=== PATIENT | male | born 1950 | race African-American/Black ===

== ENCOUNTER 2016-10-23 20:16 | Emergency (ER) | payer MEDICARE, OTHER | END 2016-10-23 22:00 | disposition home or self-care (01) | LOC: CED 20:16 | DX: Z48.01 Encounter for change or removal of surgical wound dressing (principal); N18.9 Chronic kidney disease, unspecified; Z99.2 Dependence on renal dialysis | CPT/HCPCS: 99282 ==

== ENCOUNTER 2016-11-04 16:55 | Inpatient (IN) | payer MEDICARE, OTHER ==
--- NOTE | ~2016-11-04 | CO ---
Unit #: [id number] #: [id number] Patient: NOEMI PELLETIER [id number] [facility] [address] [facility]. [place], [place] [address] [id number] MR#: [id number] NAME: NOEMI PELLETIER [facility]OM: [facility] Age: 66 Sex: M Admission Date: 11/04/2016 : 1950 Attending Physician: Eugene Brown M.D. Consultation Date: 11/04/2016 CONSULTATION REPORT Thank you very much for this consultation. HISTORY OF PRESENT ILLNESS The patient is a 66-year-old male with history of end-stage renal disease, on Wednesday, Wednesday, and Wednesday hemodialysis, who recently had a partial left foot amputation for nonhealing wounds due to peripheral vascular disease. He was at dialysis today in his normal state of health when he went unresponsive. He was noted to have lost his pulse and was immediately put on a backboard with compressions. An AED was placed, which indicated the need to shock. The patient was shocked twice and received compressions until pulse was regained. By that time, EMS had arrived. He also received rescue breaths as he seemed to have some agonal breathing in the dialysis unit. He was then transferred via EMS to the emergency room here at [facility], where he was intubated for respiratory protection. He did have a significant amount of secretions noted in the ER. He is currently on the vent, sedated on Diprivan in the ER. His blood pressure is stable. Heart rate is stable, and he is saturating well on the vent. His dialysis needles had been removed, and there is family present at bedside. Review of systems is of course unobtainable due to his current condition. PAST MEDICAL HISTORY Significant for end-stage renal disease, on Wednesday, Wednesday, and Wednesday hemodialysis; anemia of chronic kidney disease; peripheral vascular disease; hypertension; diabetes type 2. MEDICATIONS Reviewed as per his med rec. FAMILY HISTORY Noncontributory. SOCIAL HISTORY Unobtainable. REVIEW OF SYSTEMS Unobtainable. PHYSICAL EXAMINATION VITAL SIGNS: His blood pressure is 121/58, pulse of 81, respirations 18, current temperature 98.0. GENERAL: He is a well-developed male, sedated on the vent. HEAD: Normocephalic and atraumatic. Unit #: [id number] #: [id number] Patient: NOEMI PELLETIER ENT: He has an ET tube in place. NECK: Supple with no JVD. LUNGS: Coarse bilaterally with no wheezes, rhonchi, or crackles. HEART: Regular rate and rhythm. No murmurs, gallops, or rubs. ABDOMEN: Soft, with positive bowel sounds. EXTREMITIES: He has no edema. NEURO: The patient is sedated. DIAGNOSTIC STUDIES LABORATORY RESULTS: ABG showed a pH of 7.286, pCO2 of 42, pO2 of 284. Sodium 135, potassium 2.5, chloride 97, bicarb 20, BUN 12, creatinine 4.6, glucose 222, calcium 8.4, albumin 3.4, INR 1.1, troponin less than 0.05. White count 40.4, hemoglobin 10.1, platelets 432. IMPRESSION 1. End-stage renal disease. The patient normally on a Wednesday, Wednesday, Wednesday hemodialysis. He did receive his dialysis today before his arrest. 2. Status post cardiac arrest. The patient was resuscitated in the dialysis unit with the use of AED and chest compressions. He is currently vitally stable in the ER. His troponin is negative. Further workup is pending. 3. Hypokalemia. This is likely due to his having just received dialysis. We will recheck now and treat as indicated. 4. Pulmonary edema. The patient is currently stable on the vent. We will not do further dialysis tonight due to his recent arrest and potential instability. We will plan on dialysis tomorrow if stable. 5. Diabetes type 2. 6. Acute respiratory failure secondary to pulmonary edema, stable on the vent. PLAN We will write orders for dialysis for the morning. Continue ventilatory support. Pulmonary is to see. Vital signs are currently stable. We will adjust medications as needed and have discussed condition with the patient's family. More than 35 minutes of critical care time was spent in consultation regarding this critically ill patient. Thank you very much for this consultation. Dictated by... Frank Garcia M.D. YUE/josiah TD: 11/05/2016 02:54 JOB #: [id number] CONSULTATION REPORT Page 1 of 1 X Frank Garcia MD CONSULTATION REPORT
--- NOTE | ~2016-11-04 | DS ---
Unit #: [id number] #: [id number] Patient: NOEMI PELLETIER [id number] [id number] [facility]. [place], [place] [address] [id number] MR#: [id number] NAME: NOEMI PELLETIER ROOM: 329 Age: 66 Sex: M Admission Date: 11/04/2016 : 1950 Discharge Date: Attending Physician: Jeff Otero M.D. Primary Care Physician: No Primary Care Physician DISCHARGE SUMMARY DISPOSITION The patient will be transferred to [facility] on either 11/09/2016 or 11/10/2016 depending on bed availability. CONSULTANTS Dr. Saeed from pulmonary services. Dr. Lantigua from renal services. Drs. Lozada and Magnus from cardiology services. DIAGNOSTIC DATA LABORATORY: On discharge, sodium 135, potassium 4.1, chloride 96, BUN 27, creatinine 9.7, calcium 8.3, magnesium 2.0. CBC shows white blood cell count 15.5, hemoglobin 8.4, hematocrit 26.2, and platelets 364. Blood cultures one of two sets growing staph species coag negative, probable contaminate. Troponin on 11/08/2016 was 1.76. BNP 900 on 11/06/2016. BNP 1000 on admission. Procalcitonin level 28.02 on 11/05/2016. IMAGING: CTA of the chest on 11/04/2016 showed no PE, no evidence of aortic aneurysm or dissection. Pulmonary parenchymal findings most in keeping with zgnxkoel-nk-ayvbbm pulmonary edema. Multifocal bilateral pneumonia possible. 4-5 mm noncalcified pulmonary nodule right upper lobe. The patient may need 6-[address] followup. Most recent chest x-ray was done on 11/07/2016, which shows stable heart size and interval extubation. No new dense opacity or pneumothorax. HOSPITAL COURSE Mr. Noemi Pelletier is a 66-year-old male who was admitted by Dr. Saeed and later on transferred care to our services. The patient was at hemodialysis when he suffered pulseless electrical activity and went into cardiopulmonary arrest. The patient was resuscitated and admitted at [facility] at [facility] by Dr. Saeed and was on the ventilator. The patient was started on broad spectrum IV antibiotics. Dr. Lozada and Dr. Agudelo from the cardiology service were consulted. The patient did suffer a non-ST elevation myocardial infarction. Cardiac catheterization was done on 11/09/2016 and the patient does have severe systolic three vessel disease. It has been decided by cardiology to transfer the patient to [facility] for possible coronary artery bypass grafting or further cardiac intervention. I have discussed with the patient and the patient is aware. The patient does not have any primary care provider. The patient will be transferred to [facility] under Dr. Otero's care. The patient does have pneumonia and is being treated by Dr. Saeed with Unit #: [id number] #: [id number] Patient: NOEMI PELLETIER. Dr. Saeed will continue to follow the patient at [facility]. The patient does have endstage renal disease and is on hemodialysis. The patient is scheduled to have hemodialysis done today. Discussed with Dr. Keyes and he will continue to follow the patient at [facility]. DISCHARGE MEDICATIONS 1. IV Astinon 0.5 g q.12 h. 2. IV vancomycin 1 g daily. Pharmacy to dose. 3. Nephrocaps 1 capsule daily. 4. Nitroglycerin 0.4 mg sublingual p.r.n. chest pain. 5. Levothyroxine 25 mcg daily. 6. Aspirin 81 mg daily. 7. Percocet 5/325 mg 1 tablet q.4 h. p.r.n. pain. 8. Protonix 40 mg p.o. daily. 9. Insulin sliding scale low-dose protocol. 10. Lipitor 80 mg p.o. at nighttime. 11. Coreg 6.25 mg b.i.d. 12. Heparin 5000 units subcutaneous t.i.d. 13. Tylenol 650 mg q.6 h. p.r.n. 14. Nebulizer treatment. 15. Mini-Neb treatment with albuterol and Atrovent q.4 h. p.r.n. FINAL DIAGNOSES 1. Cardiopulmonary arrest, status post resuscitation. 2. Non-ST elevation myocardial infarction. 3. Status post cardiac catheterization showing three-vessel disease. 4. History of endstage renal disease on hemodialysis. 5. Peripheral vascular disease two weeks ago, with amputation of left great toe. The patient will need ongoing wound care. 6. Hypertension. 7. Hyperlipidemia. 8. Diabetes mellitus type 2. 9. Hypothyroidism. 10. Morbid obesity. 11. Nonsmoker. PHYSICAL EXAMINATION VITALS: At discharge, blood pressure 128/67, respiratory rate 16, pulse 92, temperature 99, oxygen saturation 98%. HEENT: Head is normocephalic. CHEST: Fair air entry. Decreased at the bases. HEART: S1 and S2 positive. Regular rhythm. ABDOMEN: Obese. EXTREMITIES: Left foot dressing is present. The patient had amputation done two weeks ago at [facility]. The patient will need ongoing wound care. DISCHARGE INSTRUCTIONS 1. The patient is being transferred to [facility] for further cardiac intervention. 2. Dr. Otero to take over the patient's care. 3. Medications as per medication reconciliation. 4. Dr. Lantigua to continue hemodialysis at [facility]. 5. Dr. Saeed to follow the patient at [facility] for pneumonia. 6. The patient is needing to continue wound care of the left foot. The Unit #: [id number] #: [id number] Patient: NOEMI PELLETIER patient had amputation done at [facility] about two weeks ago. 7. CBC and BMP to be done in one week. 8. The plan of care has been discussed with the patient. Dictated by... Madalyn Kennedy TD: 11/09/2016 13:52 JOB #: [id number] DISCHARGE SUMMARY Page 1 of 1 X Alicia Fry MD X DISCHARGE SUMMARY
--- NOTE | ~2016-11-04 | CR72 ---
[facility] A Service of [facility] & [facility] RADIOLOGY TEXT RESULTS PATIENT: NOEMI PELLETIER LOCATION: [address] : [birth year] UNIT #: [id number] AGE: [address]: CHENTE BROWN SEX: M ORDER DR: [id number] [facility] [address] [facility]. [place], [place] [address] [id number] I MR#: [id number] Acc #: [id number] NAME: NOEMI PELLETIER : 1950 SEX: M STUDY DATE/TIME: 11/05/2016 3:47 UNIT: [facility] ROOM: [facility] STUDY DESCRIPTION: CR Chest Single View Portable Attending Physician: Chente Brown Ordering Physician: Jo Hidalgo M.D. Primary Care Physician: Primary Care Physician No MEDICAL IMAGING REPORT This report is preliminary unless electronic signature is present EXAM Single view chest INDICATION Respiratory failure. FINDINGS Single portable AP view of the chest compared to 11/04/2016. Endotracheal tube has been retracted, now approximately 5.5 cm from the bassam. Right IJ central line remains in place. There is increased density in the right lower lobe. No new pulmonary opacities. No pneumothorax. IMPRESSION 1. Interval retraction of the endotracheal tube, now approximately 5.5 cm from the bassam. 2. Otherwise, no significant change. Dictated by... Juan Roberts M.D. THIS IS AN ELECTRONICALLY VERIFIED REPORT Juan Roberts M.D. at 11/05/2016 5:43 AM DIPAK/natalie TD: 11/05/2016 04:51 JOB #: [id number] MEDICAL IMAGING REPORT Page 1 of 1 COPY
--- NOTE | ~2016-11-04 | A ---
[facility] Nutrition Therapy DATE: 11/05/16 Patient: NOEMI PELLETIER Physician: [facility] Address: [address] Room/Bed: [address], Zip: [place] [address] Admit Date: 11/04/16 Date of : [birth year] Height: 6 0 Weight: 198 90 NUTRITIONAL ASSESSMENT: REASON: NPO/ ventilator in ICU 66 yo male admitted for resuscitated arrest PMH: ESRD on HD, PVD, DM, hypothyroid, left great toe amputation Anthropometrics: Ht: 6'0" Wt: 90 kg BMI: 26.9 Labs: Na+ 133 Cl- 97 Gluc 165 Creat 5.6 Ca++ 8.2 Alb 3.4 AST 186 ALT 111 GFR 11.2 BNP 1014 Meds: Propofol @ 22.8 mL/hr, novolog, protonix, D5%, levophed, NaCl I/O & Bowel function: 304/0, last BM unknown Skin Integrity: Scar left hip/ RLQ Edema: BLE- generalized Estimated Nutrition Needs: 6403-7284 kcals (25-30 kcals/kg) 108-126 grams protein (1.2-1.4 grams/kg) Assessment: Chart reviewed, events noted. 66 yo male admitted for resuscitated arrest after coding at the dialysis center. Pt is intubated and sedated in the ICU on pressors. Propofol is providing an additional 602 kcals from lipids at this time. Per RN report, was confused upon admission, not following commands. Pt is currently receiving HD, and no family is in the room to provide nutritional history. Please see nutritional recommendations below. Dx: Inadequate protein-energy intake RT clinical condition, ventilator dependence AEB NPO status, no plans for nutrition support at this time. Intervention: 1. Enteral nutrition once hemodynamically stable Monitoring, Evaluation and Goals: 1. Enteral nutrition; initiate once the pt is stable, provide >80% goal volume x 24 hrs 2. Improve labs; Na+, Gluc, AST, ALT, GFR 3. Fluid status; monitor edema [facility] Nutrition Therapy DATE: 11/05/16 Patient: NOEMI PELLETIER Physician: [facility] Address: [address] Room/Bed: [address], Zip: [place] [address] Admit Date: 11/04/16 Date of : [birth year] Height: 6 0 Weight: 198 90 Recommendations: 1. If the pt's MAP is <60 mmHg, do not feed. -If the pt's MAP is >60 mmHg, consider using a fiber-free enteral formula and monitor closely for symptoms of intolerance. If fiber-free formula is desired, start Osmolite 1.5 @ 15 mL/hr. Increase by 10 mL q 12 hrs as tolerated to goal of 65 mL/hr + 30 mL Prostat once daily to provide: 2440 kcals/ 113 grams protein/ 1186 mL free H20 2. Once the pt is hemodynamically stable, recommend initiating enteral nutrition with Nepro @ 15 mL/hr. Increase by 10 mL q 8 hrs as tolerated to indicated goal below based on propofol administration: WHILE THE PT IS RECEIVING PROPOFOL: -Increase Nepro to 40 mL/hr + 30 mL Prostat BID to provide: 2530 kcals/ 108 grams protein/ 701 mL free H20 WHEN PROPOFOL IS DISCONTINUED: -Discontinue Prostat -Increase Nepro to 55 mL/hr to provide: 2376 kcals/ 107 grams protein/ 964 mL free H20 3. Free H20 flushes per MD orders Pt is at moderate-severe nutritional risk. RD will follow hospital course. Respectfully, SUSAN NARAYANAN RD, LD Food and Nutritional Services [facility] cc: client file
--- NOTE | ~2016-11-04 | CR72 ---
[facility] A Service [facility] RADIOLOGY TEXT RESULTS PATIENT: NOEMI PELLETIER LOCATION: [address] : [birth year] UNIT #: [id number] AGE: [address]: CHENTE HUBBARD SEX: M ORDER DR: [id number] [facility] [address] [place], [place] [address] [id number] MR#: [id number] Acc #: [id number] NAME: NOEMI PELLETIER : 1950 SEX: M STUDY DATE/TIME: 11/04/2016 22:40 UNIT: [facility] ROOM: STUDY DESCRIPTION: CR Chest Single View Portable Attending Physician: Todd Ellison Ordering Physician: Ed Doc Madalyn Lopez Primary Care Physician: Primary Care Physician No MEDICAL IMAGING REPORT This report is preliminary unless electronic signature is present EXAM Single view chest INDICATION Central line placement. FINDINGS Single portable AP view of the chest compared to 11/04/2016. There is a new right IJ central line with the tip over the cavoatrial junction. No pneumothorax. Endotracheal tube is unchanged in position. There is mild interstitial edema in both lungs, however this has slightly improved. No significant pleural effusion. IMPRESSION 1. New right IJ central line terminating over the cavoatrial junction. No pneumothorax. 2. Improving pulmonary vascular congestion. Dictated by... Juan Roberts M.D. THIS IS AN ELECTRONICALLY VERIFIED REPORT Juan Roberts M.D. at 11/05/2016 12:19 AM DIPAK/natalie TD: 11/04/2016 23:17 JOB #: [id number] MEDICAL IMAGING REPORT [facility] A Service [facility] RADIOLOGY TEXT RESULTS PATIENT: NOEMI PELLETIER LOCATION: [address] : [birth year] UNIT #: [id number] AGE: [address]: CHENTE HUBBARD SEX: M ORDER DR: Page 1 of 1 COPY
--- NOTE | ~2016-11-04 | CR72 ---
[facility] A Service of [facility] & [facility] RADIOLOGY TEXT RESULTS PATIENT: NOEMI PELLETIER LOCATION: [facility] CICCU3-19 : [birth year] UNIT #: [id number] AGE: [address]: CHENTE HUBBARD SEX: M ORDER DR: [id number] [facility] [address] [place], [place] [address] [id number] E MR#: [id number] Acc #: [id number] NAME: NOEMI PELLETIER : 1950 SEX: M STUDY DATE/TIME: 11/04/2016 17:23 UNIT: [facility] ROOM: STUDY DESCRIPTION: CR Chest Single View Portable Attending Physician: Calvin Ellison M.D. Referring Physician: Rachdi Bray M.D. Ordering Physician: Ed Aldo Lopez M.D. Primary Care Physician: No Primary Care Physician MEDICAL IMAGING REPORT This report is preliminary unless electronic signature is present EXAM Portable chest, 11/04/2016. INDICATION Patient found unconscious today and intubated. CHF. FINDINGS AP portable chest compared with 07/05/15. ET tube in good position in the lower trachea. Heart size within normal limits. Diffuse bilateral infiltrates probably reflect pulmonary edema rather than pneumonia. There is trace amount of right pleural fluid. No pneumothorax. Dictated by... Noemi Vergara Jr., M.D. THIS IS AN ELECTRONICALLY VERIFIED REPORT Noemi Vergara Jr., M.D. at 11/05/2016 2:07 PM MARKUS/courtney TD: 11/04/2016 21:05 JOB #: [id number] MEDICAL IMAGING REPORT Page 1 of 1 COPY
--- NOTE | ~2016-11-04 | CT16 ---
[facility] A Service of [facility] & [facility] RADIOLOGY TEXT RESULTS PATIENT: NOEMI PELLETIER LOCATION: [facility] CICCU3-19 : [birth year] UNIT #: [id number] AGE: [address]: CHENTE HUBBARD SEX: M ORDER DR: [id number] [facility] [address] [place], [place] [address] [id number] E MR#: [id number] Acc #: [id number] NAME: NOEMI PELLETIER : 1950 SEX: M STUDY DATE/TIME: 11/04/2016 21:34 UNIT: [facility] ROOM: STUDY DESCRIPTION: CT Angio Chest for PE Attending Physician: Calvin Ellison M.D. Ordering Physician: Fransisco Lopez M.D. Primary Care Physician: Primary Care Physician No MEDICAL IMAGING REPORT This report is preliminary unless electronic signature is present EXAM CT angiography chest for PE HISTORY Short of air, unresponsive on ventilator today. TECHNIQUE CT pulmonary angiography performed with intravenous administration of 80 mL Isovue-370. Patient noted to have markedly diminished renal function with reported creatinine 4.6 and eGFR 14.2. Apparently, dialysis has been ordered for the patient. This CT exam was performed with one or more of the following radiation dose reduction techniques: Automatic exposure control, adjustment of mA and/or kV according to patient size, and iterative reconstruction. FINDINGS There is an endotracheal tube in place, which terminates immediately above the bassam. For placement in mid thoracic trachea, it could be withdrawn 2-3 cm and reassessed with chest radiograph. There is a right internal jugular-approach central venous catheter, which terminates in the superior vena cava. Visualized thyroid unremarkable. No axillary adenopathy. Small mediastinal lymph nodes. 1.1 cm right hilar node. Second borderline enlarged right hilar node. There is a approximately 1.3 cm subcarinal lymph node. Given findings on the scan, these are likely benign/reactive in nature and attention at followup is recommended. The heart is upper limits of normal in size. There are moderate bilateral pleural effusions. The liver shows no focal abnormality. There is reflux of contrast into the inferior vena cava and hepatic veins, suggesting some degree of elevated right heart pressure. Trace pericardial fluid. The gallbladder is surgically absent. Spleen, visualized pancreas, adrenal glands and left upper renal pole show a 3-mm calculus in the left upper renal pole. This could be a renovascular calcification. [facility] A Service of [facility] & [facility] RADIOLOGY TEXT RESULTS PATIENT: NOEMI PELLETIER LOCATION: [facility] CICCU3-19 : [birth year] UNIT #: [id number] AGE: [address]: CHENTE HUBBARD SEX: M ORDER DR: visualized left kidney suggests some degree of renal atrophy. No upper abdominal adenopathy. The esophagus, stomach, visualized small bowel and colon are unremarkable. Pulmonary parenchyma shows mild interlobular septal thickening in the upper lung zones. Airspace disease in the dependent upper lobes, to a lesser extent in the dependent right middle lobe, and to a greater extent in the bilateral dependent lower lobes. The airspace disease is bilateral and symmetric. There is mild central and basilar bronchial wall prominence. In the nondependent portions of the bilateral lower lobes, there are some hazy ground-glass densities. Appearance of the lungs probably reflects pulmonary edema with interstitial airspace and pleural space components. Bilateral multifocal symmetric pneumonia felt unlikely. 4-mm noncalcified pulmonary nodule in the right upper lobe. In the absence of prior studies demonstrating prolonged stability, 6-12 month followup would be recommended depending upon risk factors. The pulmonary arteries are well opacified. No PE. Study not tailored for assessment of the aorta. No aortic aneurysm or dissection. Great vessel origins patent. Coronary and systemic atherosclerotic arterial calcifications. The right hepatic artery is replaced to the superior mesenteric artery. Normal variant. Bony structures show no acute abnormality. There are degenerative changes in the spine. IMPRESSION 1. No PE. 2. No evidence of aortic aneurysm or dissection. Visualized aortic branch vessels are patent. There are atherosclerotic arterial calcifications in coronary and systemic circulation. 3. Pulmonary parenchymal findings most in keeping with cjgobtbr-bu-uompfe pulmonary edema. There is mild interlobular septal thickening in the upper lung zones. Dependent airspace disease in the bilateral lungs, in upper lobes bilaterally and symmetrically, and to a greater extent in the bilateral lower lobes symmetrically. Minimal dependent airspace disease in the right middle lobe. In the anti-dependent portions of the bilateral lower lobes, there are some patchy ground-glass densities. Moderate bilateral pleural effusions. Pulmonary edema with interstitial airspace and pleural space components strongly favored. Multifocal bilateral pneumonia felt unlikely. 4. Borderline enlarged subcarinal and right hilar lymph nodes favored to be reactive in nature. Attention at followup recommended. 5. 4-5 mm noncalcified pulmonary nodule right upper lobe. In absence of prior studies demonstrating prolonged stability, 6-[address] followup recommended depending upon patient risk factors. 6. There is some reflux of contrast material into the inferior vena cava and hepatic veins suggesting elevated right heart pressure. 7. 3-mm nonobstructing left upper pole renal calculus versus renovascular calcification. Appearance of the partially visualized [facility]. [facility] A Service of [facility] RADIOLOGY TEXT RESULTS PATIENT: NOEMI PELLETIER LOCATION: [place] [address]-19 : [birth year] UNIT #: [id number] AGE: [address]: CHENTE HUBBARD SEX: M ORDER DR: left kidney raises possibility of some degree of renal atrophy. The patient is noted to have evidence of renal failure. 8. The endotracheal tube terminates immediately above the bassam. For placement within the mid thoracic trachea, it could be withdrawn 2-3 cm and reassessed with plain radiograph. 9. See remainder of incidental findings in body of report above. Dictated by... Jose Salinas M.D. THIS IS AN ELECTRONICALLY VERIFIED REPORT Jose Salinas M.D. at 11/05/2016 5:58 PM KEL/mirela TD: 11/04/2016 23:23 JOB #: [id number] MEDICAL IMAGING REPORT Page 1 of 1 COPY
--- NOTE | ~2016-11-04 | EKG ---
PATIENT: NOEMI PELLETIER UNIT #: [id number] Ventricular Rate: 143 BPM Atrial Rate: 143 BPM P-R Interval: 194 ms QRS Duration: 108 ms Q-T Interval: 296 ms QTC Calculation(Bezet): 456 ms P [place]: 32 degrees Calculated R [place]: 52 degrees Calculated T [place]: -150 degrees Diagnosis Line: Cannot rule out Atrial flutter with 2 to 1 block Diagnosis Line: Marked ST abnormality, possible inferior Diagnosis Line: subendocardial injury Diagnosis Line: Marked ST abnormality, possible anterolateral Diagnosis Line: subendocardial injury Diagnosis Line: Abnormal ECG Diagnosis Line: No previous ECGs available Diagnosis Line: Confirmed by ESME CORDOVA MD ([id number]) on 11/05/2016 Diagnosis Line: 6:02:39 PM INTERPRETING MD: TASHA MON
--- NOTE | ~2016-11-04 | CO ---
Unit #: [id number] #: [id number] Patient: NOEMI PELLETIER [id number] [address] [place], [place] [address] [id number] I MR#: [id number] NAME: NOEMI PELLETIER ROOM: [facility] Age: 66 Sex: M Admission Date: 11/04/2016 : 1950 Attending Physician: Emelia Brown CONSULTATION REPORT ADDENDUM IMPRESSION The patient currently, for anticoagulation, is on heparin 5000 units subcu t.i.d. He was also started on antibiotics for possible pneumonia. We will obtain a CT of the head to evaluate. Dictated by... Steven Bonilla/josiah TD: 11/06/2016 02:53 JOB #: [id number] CONSULTATION REPORT Page 1 of 1 X Jennifer Sun APRN CONSULTATION REPORT
--- NOTE | ~2016-11-04 | CO ---
Unit #: [id number] #: [id number] Patient: NOEMI PELLETIER [id number] [address] [place], [place] [address] [id number] I MR#: [id number] NAME: NOEMI PELLETIER. ROOM: [facility] Age: 66 Sex: M Admission Date: 11/04/2016 : 1950 Attending Physician: Emelia Brown Primary Care Physician: Primary Care Physician No Consultation Date: 11/05/2016 CONSULTATION REPORT REASON FOR CONSULTATION Cardiology management for status post cardiopulmonary arrest. HISTORY OF PRESENT ILLNESS This is a 66-year-old male, who has a history of end-stage renal disease, requiring hemodialysis, peripheral vascular disease, recently had amputation of his left great toe, hypertension, diabetic, hyperlipidemia, hypothyroidism, obesity. The patient was brought to the hospital by EMS after he went into cardiopulmonary arrest at the dialysis center. According to information by the staff and the patient's brother, who is at the bedside, states that there was about 7 minutes left of his dialysis session. He started having agonal breathing, he became unresponsive and according to information, at first, he did not have a pulse. They placed AED and according to information on the ER sheet, he was shocked twice. He regained the pulse. They continued rescue breathing. He was brought in. When he came to the emergency room, his blood pressure was 180/112, heart rate was 102, respirations 18. He was being mechanically with a non-rebreather. He was shortly after that intubated. The patient's initial EKG showed sinus tachycardia with heart rate of 143 beats per minute, left atrial abnormality, some ST-T wave depression in anterolateral leads, also nonspecific changes. His initial cardiac enzymes; his troponin was less than 0.05 and his second set of enzymes, his troponin increased to 1.20. The patient was started on Levophed for hypotension. He required propofol for sedation. He is responding to painful stimuli, but is nonpurposeful movement. Cardiology was consulted because of his elevated troponin and having a cardiopulmonary arrest. On interview and exam with the patient's brother, to the understanding his brother has never had any cardiac issues. He has been very close his brother for several years and he says he does not see any sausage meat trimmer, especially recently. PAST MEDICAL HISTORY 1. End-stage renal disease, on hemodialysis. 2. Peripheral vascular disease; 2 weeks ago, had amputation of his left great toe. 3. Hypertension. 4. Hyperlipidemia. 5. Diabetes mellitus, type 2. 6. Hypothyroidism. 7. Obesity. Weight 198 pounds with a BMI of 26. 8. Nonsmoker. 9. According to the patient's brother, no known heart disease test or heart problems. Unit #: [id number] #: [id number] Patient: NOEMI PELLETIER PAST SURGICAL HISTORY 1. Had a recent amputation of left great toe 2 weeks ago. 2. Tonsillectomy. 3. Appendectomy. 4. Cholecystectomy. HOME MEDICATIONS Aspirin 81 mg p.o. daily, sodium bicarb 650 mg p.o. t.i.d., pravastatin 20 mg p.o. daily, Synthroid 50 mcg p.o. daily, Renal Softgel 1 capsule p.o. daily, calcium carbonate 2 tablets p.o. daily. ALLERGIES Penicillin. SOCIAL HISTORY The patient lives in a home with his brother. He does some chores around the home, but light chores. He does drive. He has been a lifelong nonsmoker. No alcohol or illicit drug abuse. FAMILY HISTORY His father had some type of stroke. His mother is fairly healthy. He had a younger brother who did have a stroke. REVIEW OF SYSTEMS See details in HPI. PHYSICAL EXAMINATION GENERAL: Mr. Pelletier is a 66-year-old male. He is intubated. He is sedated. VITAL SIGNS: Blood pressure is 111/60, heart rate 60, respirations 18, temperature is 97.5, O2 saturations 100% on the ventilator. NECK: Trachea midline. No thyromegaly or lymphadenopathy. Normal carotid upstrokes. No jugular venous distention. HEART: S1, S2. Regular rate and rhythm. No clicks, murmurs, or rubs. LUNGS: Diminished, hard to auscultate due to ventilator sounds. ABDOMEN: Obese, soft, nontender. Positive bowel sounds present. EXTREMITIES: Pedal pulses are palpable on the right. The left has a bandage over where he had a recent toe amputation, but the left lower extremity appears to be more edematous than the right. DIAGNOSTIC STUDIES LABORATORY RESULTS: ABGs; pH is 7.534, pCO2 of 33.9, pO2 of 360, O2 sats 99.1. Glucose is 165, BUN 17, creatinine 5.6, eGFR is 11.2. Sodium is 133, potassium is 3.6, chloride 97, CO2 of 27, calcium is 8.2, phosphorus is 2.8, magnesium is 1.8. Total protein is 7.4, albumin 3.4, bilirubin total is 1.3, AST 186, ALT 111, alkaline phosphatase is 207. BNP is 1014. WBC is 20.3, hemoglobin 8.5, hematocrit 26.4, platelets is 381. Initial cardiac enzymes; CK-MB is 4.9, troponin less than 0.05. CK-MB is 18.1, troponin 1.20. Urinalysis is pending. IMAGING STUDIES: Chest x-ray showed diffuse bilateral infiltrates, probably reflect pulmonary edema rather than pneumonia. A trace of right pleural fluid. CT angio of the chest for PE protocol with contrast showed no pulmonary Unit #: [id number] #: [id number] Patient: NOEMI PELLETIER embolism, no evidence of aortic aneurysm or dissection, moderate to severe pulmonary edema, minimal dependent airspace disease in the right middle lobe. In the bilateral lower lobes, some patchy ground-glass densities. Moderate bilateral pleural effusions. Pulmonary edema with interstitial airspace in pleural space component strongly favored, multifocal bilateral pneumonia felt unlikely. 4 to 5 mm noncalcified pulmonary nodule in right upper lobe and some subcarinal and right hilar lymph nodes and a 3 mm nonobstructing left upper pole renal calculus. EKG shows on admission, sinus tachycardia, heart rate 143 beats per minute, possibly some SVT. Significant ischemic changes in the anterolateral leads. Later EKG shows normal sinus rhythm with ventricular rate of 73 beats per minute. Some anterolateral ischemia and prolonged QT. IMPRESSION 1. Asystole during dialysis, status post cardiopulmonary resuscitation and 2 shocks delivered by the AED. 2. Hypokalemia. 3. Elevated troponin, non-ST elevated myocardial infarction. 4. EKG shows significant anterolateral ischemia. 5. History of end-stage renal disease, on hemodialysis. 6. Peripheral vascular disease; 2 weeks ago had an amputation of left great toe. 7. Hypertension. 8. Hyperlipidemia. 9. Diabetes mellitus, type 2. 10. Hypothyroidism. 11. Obesity. 12. Nonsmoker. 13. Elevated liver function tests. PLAN 1. The patient is going to have dialysis again today for fluid overload and renal is managing his diuretics and removal of fluid along with replacing his potassium and magnesium. 2. The patient is on Levophed drip. That will be titrated off to dialysis if possible. 3. We will obtain 2D echo to evaluate LV function and valves. 4. We will give aspirin 325 mg p.o. if he has a Dobbhoff tube or 300 mg per rectum if he does not. 5. Obtain a fasting lipid profile, TSH, and evaluate. 6. No statin at this time because of elevated LFTs. 7. No scheduled beta-mehrdad due to hypotension. 8. We will ask vascular surgeon to see the patient about problems with his left lower extremity. According to the brother, he is supposed to have a procedure done this upcoming Wednesday at [facility] to see if they can help the circulation in the lower extremity. 9. I had a long discussion with the brother at bedside and discussed with the brother if the patient's mental status improves, he will need a heart catheterization to further evaluate for ischemic heart disease. 10. Continue supportive care. Further recommendations pending per Dr. Lozada. Dictated by... Jennifer Sun A.P.R.N. [facility]/modl Unit #: [id number] #: [id number] Patient: NOEMI PELLETIER TD: 11/06/2016 05:44 JOB #: [id number] CONSULTATION REPORT Page 1 of 1 X Jennifer Sun APRN CONSULTATION REPORT
--- NOTE | ~2016-11-04 | EKG ---
PATIENT: NOEMI PELLETIER UNIT #: [id number] Ventricular Rate: 62 BPM Atrial Rate: 62 BPM P-R Interval: 172 ms QRS Duration: 94 ms Q-T Interval: 716 ms QTC Calculation(Bezet): 726 ms P [place]: 88 degrees Calculated R [place]: 24 degrees Calculated T [place]: -136 degrees Diagnosis Line: Normal sinus rhythm Diagnosis Line: ST and Marked T wave abnormality, consider Diagnosis Line: anterolateral ischemia Diagnosis Line: Prolonged QT Diagnosis Line: Abnormal ECG Diagnosis Line: When compared with ECG of 05-NOV-2016 06:47, Diagnosis Line: T wave inversion now evident in Inferior leads Diagnosis Line: T wave inversion more evident in Anterior leads Diagnosis Line: Confirmed by KOREY BRAUN MD ([id number]) on Diagnosis Line: 11/10/2016 5:13:16 PM INTERPRETING MD: TIFFANIE
--- NOTE | ~2016-11-04 | HP ---
Unit #: [id number] #: [id number] Patient: NOEMI PELLETIER [id number] [address] [place], [place] [address] [id number] I MR#: [id number] NAME: NOEMI PELLETIER. ROOM: [facility] Age: 66 Sex: M Admission Date: 11/04/2016 : 1950 Attending Physician: Eugene Brown M.D. Primary Care Physician: No Primary Care Physician HISTORY AND PHYSICAL CHIEF COMPLAINT Cardiac arrest. HISTORY OF PRESENT ILLNESS This patient is a 66-year-old male with a past medical history of end stage renal disease on hemodialysis, history of left great toe amputation and hypertension, presented to the emergency room with a complaint of cardiac arrest, on dialysis, was intubated. Patient was finishing dialysis, had a cardiac arrest and brought in after cardiac arrest. I am seeing him at the bedside, currently intubated, sedated. Chart has been reviewed. No family available at the bedside. PHYSICAL EXAMINATION VITAL SIGNS: His temperature currently is 98, pulse 87, respirations 12, blood pressure 108/55. NEUROLOGICAL: He is sedated. CVS: S1+ S2. RESPIRATIONS: Bilateral air entry, bilateral mild rhonchi. GI: Nontender, soft. Bowel sounds positive. EXTREMITIES: No edema. SKIN: No rashes, no ulcers. LYMPHATIC: No lymphadenopathy. DIAGNOSTIC STUDIES Labs and imaging reviewed. LABORATORY: Blood gas - pH of 7.53, pCO2 is 33, pO2 is 360, FIO2 70%. Creatinine is 5.6, potassium 3.6. BNP was 1014. White count is 20, hemoglobin 8, hematocrit 26, platelet count is 381. IMAGING: Chest x-ray on admission has shown interval retraction of ET-tube, increased density in the right lower lobe. CT chest was also done for pulmonary embolism. It showed no pulmonary embolism. No evidence of aortic aneurysm or dissection. Severe pulmonary edema. PAST MEDICAL HISTORY As described above. SOCIAL HISTORY Unobtainable. Unit #: [id number] #: [id number] Patient: NOEMI PELLETIER FAMILY HISTORY Unobtainable. MEDICATIONS 1. Aspirin. 2. Antacid. 3. Pravastatin. 4. Synthroid. 5. Renal softgel. 6. Calcium carbonate. ASSESSMENT AND PLAN 1. Acute respiratory failure. 2. Aspiration pneumonia. 3. Cardiac arrest. Plan is to continue patient on aztreonam, ventilator support, sedation. Echocardiogram. Cardiology and vascular surgery consult. Nephrology following the patient. Please see orders for detailed plan. Total critical care time - 65 minutes in direct critical care of this patient. Will continue to monitor. Please see orders for detailed plan. Dictated by Madalyn Elise/nano TD: 11/05/2016 10:53 JOB #: [id number] HISTORY AND PHYSICAL Page 1 of 1 X Raisa Saeed MD X HISTORY AND PHYSICAL
--- NOTE | ~2016-11-04 | CR72 ---
[facility] A Service of [facility] RADIOLOGY TEXT RESULTS PATIENT: NOEMI PELLETIER LOCATION: [facility] 329-01 : [birth year] UNIT #: [id number] AGE: [address]: Jeff Otero MD SEX: M ORDER DR: [id number] [facility] [address]. [place], [place] [address] [id number] I MR#: [id number] Acc #: [id number] NAME: NOEMI PELLETIER : 1950 SEX: M STUDY DATE/TIME: 11/07/2016 2:31 UNIT: [facility] ROOM: [facility] STUDY DESCRIPTION: CR Chest Single View Portable Attending Physician: Jeff Otero M.D. Ordering Physician: Raisa Saeed M.D. Primary Care Physician: No Primary Care Physician MEDICAL IMAGING REPORT This report is preliminary unless electronic signature is present EXAM Portable chest INDICATION Shortness of air today. PROCEDURE Frontal view chest. COMPARISON 11/06/2016 FINDINGS Stable heart size. Interval extubation. No new dense opacity or pneumothorax. IMPRESSION Interval extubation. Otherwise stable. Dictated by... Calvin Menezes M.D. THIS IS AN ELECTRONICALLY VERIFIED REPORT Calvin Menezes M.D. at 11/07/2016 9:57 PM CATALINA/daniel TD: 11/07/2016 10:00 JOB #: [id number] MEDICAL IMAGING REPORT Page 1 of 1 COPY
--- NOTE | ~2016-11-04 | CR72 ---
[facility] A Service of [facility] RADIOLOGY TEXT RESULTS PATIENT: NOEMI PELLETIER LOCATION: [facility] 329-01 : [birth year] UNIT #: [id number] AGE: [address]: Jeff Otero MD SEX: M ORDER DR: [id number] [facility] [address]. [place], [place] [address] [id number] I MR#: [id number] Acc #: [id number] NAME: NOEMI PELLETIER. : 1950 SEX: M STUDY DATE/TIME: 11/06/2016 5:17 UNIT: [facility] ROOM: [facility] STUDY DESCRIPTION: CR Chest Single View Portable Attending Physician: Emelia Brown Ordering Physician: Raisa Saeed M.D. Primary Care Physician: Primary Care Physician No MEDICAL IMAGING REPORT This report is preliminary unless electronic signature is present EXAM Single view chest INDICATION Shortness of air. Congestive heart failure. FINDINGS Single portable AP view of the chest compared to 11/05/2016 and 11/04/2016. Support lines and tubes remain in place. Right lower lobe airspace opacity is similar to the prior study. No pneumothorax or pleural effusion. IMPRESSION No significant change. Dictated by... Juan Roberts M.D. THIS IS AN ELECTRONICALLY VERIFIED REPORT Juan Roberts M.D. at 11/10/2016 7:03 AM DIPAK/marsha TD: 11/06/2016 06:24 JOB #: [id number] MEDICAL IMAGING REPORT Page 1 of 1 COPY
--- NOTE | ~2016-11-04 | CO ---
Unit #: [id number] #: [id number] Patient: NOEMI PELLETIER [id number] [address] [address] [id number] I MR#: [id number] NAME: NOEMI PELLETIER ROOM: [facility] Age: 66 Sex: M Admission Date: 11/04/2016 : 1950 Attending Physician: Eugene Brown M.D. Requesting Physician: Raisa Saeed M.D. Consultation Date: 11/05/2016 CONSULTATION REPORT REASON FOR CONSULTATION Medical management and assumption of care as primary. HISTORY OF PRESENT ILLNESS Mr. Pelletier is a 66-year-old gentleman with a past medical history of hypertension, diabetes, peripheral vascular disease, and end-stage renal disease, on hemodialysis, who was apparently having his hemodialysis when he suffered pulseless electrical activity and went into cardiopulmonary arrest. Patient was started on compressions and automatic defibrillator was placed which advised the shock. Patient was shocked a couple of times. Compressions were continued until a pulse was regained. Since that time, patient also had some rescue breaths and was brought to [facility] Emergency Room by EMS where he was intubated secondary to increasing secretions and inability of protecting the airway. He was started on mechanical ventilation along with some hemodynamic support and admitted to the ICU per associate professor of theology, Dr. Saeed. I was kindly asked to follow the patient for general medical management and possible assumption of care as a primary. Again, the patient is intubated, and no family is present at the bedside. Therefore, I am not able to obtain any other history, neither am I able to obtain any review of systems. PAST MEDICAL HISTORY 1. Diabetes type 2. 2. Hypertension. 3. Peripheral vascular disease. 4. End-stage renal disease. 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 CURRENT MEDICATIONS 1. IV Protonix. 2. Synthroid. 3. Propofol. 4. Heparin 5000 units t.i.d. for DVT prophylaxis. 5. Versed. 6. Precedex. 7. Aspirin. 8. Combivent inhaler. 9. Levophed. 10. Normal saline. 11. Empiric antibiotics and is receiving Azactam. Unit #: [id number] #: [id number] Patient: NOEMI PELLETIER ALLERGIES Unknown. SOCIAL HISTORY Unobtainable. FAMILY HISTORY Unobtainable. PHYSICAL EXAMINATION GENERAL: Patient is a 66-year-old gentleman on mechanical ventilation and unresponsive on sedation. VITAL SIGNS: Blood pressure 108/55, heart rate 77, respirations 18, and temperature 98.5. HEENT: Head is atraumatic. Pupils sluggishly reactive to light. Orally intubated. NECK: Supple. No mass, no JVD, and no bruits. CHEST: Diminished bilaterally. CARDIOVASCULAR: S1 and S2. No murmurs. ABDOMEN: Soft and nondistended. LOWER EXTREMITIES: Without any cyanosis, clubbing, or edema. NEUROLOGIC: Unobtainable. DIAGNOSTIC STUDIES LABORATORY: Troponin elevated at 7.17. BNP 1000. Alkaline phosphatase 207, ALT 111, AST 186, calcium 8.2, chloride 97, sodium 133, GFR 11.2, creatinine 5.6, and blood glucose 165. Coagulation panel unremarkable. Initial troponin was 1.2. Hematology shows white count initially 40,000 and today is 20,000, hemoglobin and hematocrit 8.5 and 26.4, and platelets 381,000. ASSESSMENT AND PLAN 1. Acute respiratory failure. 2. Status post cardiopulmonary arrest. 3. Elevated troponin likely secondary to severe compressions. Consider Cardiology evaluation. 4. Leukocytosis, questionable aspiration pneumonia. Continue antibiotics. Pulmonary follows. 5. Elevated liver function tests most likely secondary to shock liver. Monitor closely. 6. End-stage renal disease. Hemodialysis per Renal. 7. Hypotension, question cardiogenic versus hypovolemic shock. Continue pressors and hemodynamic support. Again, consider Cardiology evaluation. 8. Diabetes. 9. History of hypertension. 10. History of peripheral vascular disease. 11. Continue current gastrointestinal and deep venous thrombosis prophylaxis. Thank you very much for the opportunity to care for this patient. We will assume the care as the primary. Dictated by... Jeff Otero M.D. OC/am Unit #: [id number] #: [id number] Patient: NOEMI PELLETIER TD: 11/05/2016 18:37 JOB #: [id number] CONSULTATION REPORT Page 1 of 1 X Jeff Otero MD CONSULTATION REPORT
--- NOTE | ~2016-11-04 | EKG ---
PATIENT: NOEMI PELLETIER UNIT #: [id number] Ventricular Rate: 73 BPM Atrial Rate: 73 BPM P-R Interval: 196 ms QRS Duration: 88 ms Q-T Interval: 620 ms QTC Calculation(Bezet): 683 ms P [place]: 84 degrees Calculated R [place]: 43 degrees Calculated T [place]: 122 degrees Diagnosis Line: Normal sinus rhythm Diagnosis Line: Marked T wave abnormality, consider anterolateral Diagnosis Line: ischemia or secondary to neurogenic causes Diagnosis Line: Prolonged QT Diagnosis Line: Abnormal ECG Diagnosis Line: When compared with ECG of 04-NOV-2016 17:02, Diagnosis Line: (unconfirmed) Diagnosis Line: Vent. rate has decreased BY 70 BPM Diagnosis Line: QRS duration has decreased Diagnosis Line: ST no longer depressed in Inferior leads Diagnosis Line: ST no longer depressed in Anterolateral leads Diagnosis Line: T wave inversion now evident in Anterolateral Diagnosis Line: leads Diagnosis Line: Confirmed by TALYA PERSAUD MD ([id number]) on 11/05/2016 Diagnosis Line: 9:19:59 PM INTERPRETING MD: HUNG MON
--- NOTE | ~2016-11-04 | EKG ---
PATIENT: NOEMI PELLETIER UNIT #: [id number] Ventricular Rate: 97 BPM Atrial Rate: 97 BPM P-R Interval: 168 ms QRS Duration: 90 ms Q-T Interval: 446 ms QTC Calculation(Bezet): 566 ms P [place]: 43 degrees Calculated R [place]: 2 degrees Calculated T [place]: -163 degrees Diagnosis Line: Normal sinus rhythm Diagnosis Line: ST and T wave abnormality, consider anterolateral Diagnosis Line: ischemia Diagnosis Line: Prolonged QT Diagnosis Line: Abnormal ECG Diagnosis Line: When compared with ECG of 06-NOV-2016 06:08, Diagnosis Line: (unconfirmed) Diagnosis Line: Vent. rate has increased BY 35 BPM Diagnosis Line: QT has shortened Diagnosis Line: Confirmed by KOREY BRAUN MD ([id number]) on Diagnosis Line: 11/10/2016 5:15:19 PM INTERPRETING MD: TIFFANIE
[2016-11-04 17:37] LABS: ARTERIAL BLD GAS O2 SATURATION 98.9 % (90.0-100.0); ARTERIAL BLOOD GAS CARBOXY HB 0.5 %sat (0.0-9.0); ARTERIAL BLOOD GAS HCO3 20.1 mmol/L; ARTERIAL BLOOD GAS MET HB 0.5 %sat (0.0-2.0); ARTERIAL BLOOD GAS PCO2 42.3 mmHg (35.0-45.0); ARTERIAL BLOOD GAS pH 7.286 (7.350-7.450)
[2016-11-04 17:38] LABS: ARTERIAL BLOOD GAS ART SITE RIGHT BRACHIAL; ARTERIAL DRAW? YES
[2016-11-04 17:39] LABS: ARTERIAL BLOOD GAS VENT MODE AC
[2016-11-04] MEDS ORDERED: SYNTHROID PO (17:48)
[2016-11-04] MEDS ORDERED: PRAVASTATIN SOD20 MG PO (17:48)
[2016-11-04] MEDS ORDERED: ANTACID650 MG PO (17:48)
[2016-11-04] MEDS ORDERED: ASPIRIN81 M2 PO (17:48)
[2016-11-04] MEDS ORDERED: RENAL SOFTGEL1 MG PO (17:49)
[2016-11-04] MEDS ORDERED: CALCIUM CARBON260 M1 PO (17:50)
[2016-11-04 18:14] LABS: BASOPHIL# 0.1 X10e3 (0-0.3); BASOPHIL% 0.3 % (0-2.5); EOSINOPHIL# 3.8 X10e3 (0-0.7); EOSINOPHIL% 9.3 % (0.0-7.0); HEMATOCRIT 32.4 % (38.0-50.0); HEMOGLOBIN 10.1 gm/dL (13.0-16.0); LYMPHOCYTE# 3.9 X10e3 (1.0-3.5); LYMPHOCYTE% 9.7 % (17.0-45.0); MEAN CELL VOLUME 92.3 FL (83-96); MEAN CORPUSCULAR HEMOGLOBIN 28.6 PG (28-34); MEAN PLATELET VOLUME 7.3 FL (6.5-11.5); MONOCYTE# 1.7 X10e3 (0-1.0); MONOCYTE% 4.2 % (3.0-12.0); NEUTROPHIL# 30.9 X10e3 (1.5-7.1); NEUTROPHIL% 76.5 % (40-75); PLATELET COUNT 432 X10e3 (140-420); RED BLOOD COUNT 3.51 X10e (3.90-5.60); RED CELL DISTRIBUTION WIDTH 16.8 % (11.0-15.5); WHITE BLOOD COUNT 40.4 X10e3 (4.0-10.5)
[2016-11-04 18:14] LABS: POC - CKMB 4.9 ng/mL (0.0-7.9); POC - TROPONIN <0.05 ng/mL (<=0.05)
[2016-11-04 18:20] LABS: DIFF IND YES
[2016-11-04 18:23] LABS: INR 1.1; PARTIAL THROMBOPLASTIN TIME 28.4 SECONDS (23.5-31.3); PROTHROMBIN TIME (PATIENT) 11.1 SECONDS (9.6-11.5)
[2016-11-04 18:26] LABS: PLATELET ESTIMATE INCREASED (NORMAL)
[2016-11-04 18:27] LABS: RBC NORMAL YES
[2016-11-04 18:30] LABS: ALBUMIN SERUM 3.4 g/dL (3.5-5.0); BILIRUBIN, DIRECT 0.2 mg/dL (0.0-0.2); BILIRUBIN,INDIRECT 1.1 mg/dL (0.0-0.9); BILIRUBIN,TOTAL 1.3 mg/dL (0.2-2.0); BUN/CREATININE RATIO 2.6; CALCIUM SERUM 8.4 mg/dL (8.4-10.2); CREATININE SERUM 4.6 mg/dL (0.6-1.4); GLOM FILT RATE Estimated 14.2 mL/min (>60); PROTEIN TOTAL SERUM 7.4 g/dL (6.0-8.3)
[2016-11-04 18:42] LABS: POTASSIUM 2.5 mmol/L (3.5-5.1)
[2016-11-04 21:46] LABS: BUN/CREATININE RATIO 2.6; CALCIUM SERUM 8.3 mg/dL (8.4-10.2); GLOM FILT RATE Estimated 12.8 mL/min (>60); POTASSIUM 3.3 mmol/L (3.5-5.1)
[2016-11-04 23:06] LABS: POC - CKMB 18.1 ng/mL (0.0-7.9); POC - TROPONIN 1.2 ng/mL (<=0.05)
[2016-11-05 03:29] LABS: BASOPHIL# 0.1 X10e3 (0-0.3); BASOPHIL% 0.3 % (0-2.5); EOSINOPHIL# 0.7 X10e3 (0-0.7); EOSINOPHIL% 3.2 % (0.0-7.0); HEMATOCRIT 26.4 % (38.0-50.0); HEMOGLOBIN 8.5 gm/dL (13.0-16.0); LYMPHOCYTE# 1.6 X10e3 (1.0-3.5); LYMPHOCYTE% 7.8 % (17.0-45.0); MEAN CELL VOLUME 89.7 FL (83-96); MEAN CORPUSCULAR HEMOGLOBIN 28.7 PG (28-34); MEAN PLATELET VOLUME 7.2 FL (6.5-11.5); MONOCYTE# 1.2 X10e3 (0-1.0); MONOCYTE% 5.8 % (3.0-12.0); NEUTROPHIL# 16.8 X10e3 (1.5-7.1); NEUTROPHIL% 82.9 % (40-75); PLATELET COUNT 381 X10e3 (140-420); RED BLOOD COUNT 2.95 X10e (3.90-5.60); RED CELL DISTRIBUTION WIDTH 16.6 % (11.0-15.5); WHITE BLOOD COUNT 20.3 X10e3 (4.0-10.5)
[2016-11-05 03:30] LABS: DIFF IND NO
[2016-11-05 03:59] LABS: BUN/CREATININE RATIO 3.03; CALCIUM SERUM 8.2 mg/dL (8.4-10.2); CREATININE SERUM 5.6 mg/dL (0.6-1.4); GLOM FILT RATE Estimated 11.2 mL/min (>60); MAGNESIUM 1.8 mg/dL (1.6-3.0); PHOSPHOROUS 2.8 mg/dL (2.5-4.6); POTASSIUM 3.6 mmol/L (3.5-5.1)
[2016-11-05 04:02] LABS: ARTERIAL BLD GAS O2 SATURATION 99.1 % (90.0-100.0); ARTERIAL BLOOD GAS HCO3 28.6 mmol/L; ARTERIAL BLOOD GAS MET HB 0.5 %sat (0.0-2.0); ARTERIAL BLOOD GAS PCO2 33.9 mmHg (35.0-45.0); ARTERIAL BLOOD GAS pH 7.534 (7.350-7.450)
[2016-11-05 04:13] LABS: ARTERIAL BLOOD GAS ART SITE RIGHT BRACHIAL; ARTERIAL BLOOD GAS DELIVERY VENT; ARTERIAL BLOOD GAS VENT MODE AC; ARTERIAL DRAW? YES
[2016-11-05 12:27] LABS: CHOLESTEROL 103 mg/dL (0-200); HDL CHOLESTEROL 39 mg/dL (29-75); LDL CHOLESTEROL 41 mg/dL ([, -130]); LDL/HDL RATIO 1 RATIO (0-4); TRIGLYCERIDES 113 mg/dL (10-160)
[2016-11-05 13:39] LABS: ARTERIAL BLD GAS O2 SATURATION 98.5 % (90.0-100.0); ARTERIAL BLOOD GAS CARBOXY HB 0.4 %sat (0.0-9.0); ARTERIAL BLOOD GAS HCO3 30.6 mmol/L; ARTERIAL BLOOD GAS MET HB 0.7 %sat (0.0-2.0); ARTERIAL BLOOD GAS PCO2 41.1 mmHg (35.0-45.0); ARTERIAL BLOOD GAS pH 7.479 (7.350-7.450)
[2016-11-05 13:41] LABS: ARTERIAL DRAW? YES
[2016-11-05 13:42] LABS: ARTERIAL BLOOD GAS ALLEN TEST NORMAL; ARTERIAL BLOOD GAS ART SITE RIGHT BRACHIAL; ARTERIAL BLOOD GAS VENT MODE A/C
[2016-11-06 04:02] LABS: BASOPHIL# 0.1 X10e3 (0-0.3); BASOPHIL% 0.6 % (0-2.5); EOSINOPHIL# 4.8 X10e3 (0-0.7); EOSINOPHIL% 23.3 % (0.0-7.0); HEMOGLOBIN 8.8 gm/dL (13.0-16.0); LYMPHOCYTE# 1.8 X10e3 (1.0-3.5); LYMPHOCYTE% 8.9 % (17.0-45.0); MEAN CORPUSCULAR HEMOGLOBIN 28.7 PG (28-34); MEAN CORPUSCULAR HGB CONC 31.6 g/dL (30-36); MEAN PLATELET VOLUME 7.7 FL (6.5-11.5); MONOCYTE# 1.2 X10e3 (0-1.0); MONOCYTE% 5.7 % (3.0-12.0); NEUTROPHIL# 12.7 X10e3 (1.5-7.1); NEUTROPHIL% 61.5 % (40-75); PLATELET COUNT 324 X10e3 (140-420); RED BLOOD COUNT 3.08 X10e (3.90-5.60); WHITE BLOOD COUNT 20.6 X10e3 (4.0-10.5)
[2016-11-06 04:03] LABS: ARTERIAL BLD GAS O2 SATURATION 98.3 % (90.0-100.0); ARTERIAL BLOOD GAS CARBOXY HB 0.6 %sat (0.0-9.0); ARTERIAL BLOOD GAS HCO3 29.1 mmol/L; ARTERIAL BLOOD GAS PCO2 38.4 mmHg (35.0-45.0); ARTERIAL BLOOD GAS pH 7.487 (7.350-7.450)
[2016-11-06 04:11] LABS: DIFF IND YES
[2016-11-06 04:12] LABS: ARTERIAL BLOOD GAS ART SITE RIGHT BRACHIAL; ARTERIAL BLOOD GAS DELIVERY VENT; ARTERIAL BLOOD GAS VENT MODE AC; ARTERIAL DRAW? YES
[2016-11-06 04:28] LABS: ALBUMIN SERUM 2.8 g/dL (3.5-5.0); BILIRUBIN, DIRECT 0.1 mg/dL (0.0-0.2); BILIRUBIN,TOTAL 0.7 mg/dL (0.2-2.0); BUN/CREATININE RATIO 2.96; CALCIUM SERUM 8.4 mg/dL (8.4-10.2); CREATININE SERUM 5.4 mg/dL (0.6-1.4); GLOM FILT RATE Estimated 11.7 mL/min (>60); MAGNESIUM 1.9 mg/dL (1.6-3.0); PHOSPHOROUS 3.4 mg/dL (2.5-4.6); POTASSIUM 3.4 mmol/L (3.5-5.1)
[2016-11-06 04:31] LABS: ANISOCYTOSIS MOD; PLATELET ESTIMATE NORMAL (NORMAL)
[2016-11-06 04:32] LABS: HYPOCHROMIA SL; VACUOLIZATION P
[2016-11-07 04:32] LABS: ARTERIAL BLD GAS O2 SATURATION 91.7 % (90.0-100.0); ARTERIAL BLOOD GAS CARBOXY HB 1.4 %sat (0.0-9.0); ARTERIAL BLOOD GAS HCO3 31.5 mmol/L; ARTERIAL BLOOD GAS MET HB 0.7 %sat (0.0-2.0); ARTERIAL BLOOD GAS PCO2 39.1 mmHg (35.0-45.0); ARTERIAL BLOOD GAS pH 7.515 (7.350-7.450)
[2016-11-07 04:46] LABS: ARTERIAL BLOOD GAS ART SITE RIGHT BRACHIAL; ARTERIAL BLOOD GAS PO2 59.5 mmHg (80.0-100); ARTERIAL DRAW? YES
[2016-11-07 07:00] LABS: BASOPHIL# 0.1 X10e3 (0-0.3); BASOPHIL% 0.5 % (0-2.5); EOSINOPHIL# 3.9 X10e3 (0-0.7); EOSINOPHIL% 26.5 % (0.0-7.0); HEMATOCRIT 25.5 % (38.0-50.0); HEMOGLOBIN 8.2 gm/dL (13.0-16.0); LYMPHOCYTE# 1.2 X10e3 (1.0-3.5); LYMPHOCYTE% 8.5 % (17.0-45.0); MEAN CELL VOLUME 90.1 FL (83-96); MEAN CORPUSCULAR HEMOGLOBIN 29.1 PG (28-34); MEAN CORPUSCULAR HGB CONC 32.4 g/dL (30-36); MEAN PLATELET VOLUME 7.4 FL (6.5-11.5); MONOCYTE# 1.1 X10e3 (0-1.0); MONOCYTE% 7.6 % (3.0-12.0); NEUTROPHIL# 8.3 X10e3 (1.5-7.1); NEUTROPHIL% 56.9 % (40-75); PLATELET COUNT 244 X10e3 (140-420); RED BLOOD COUNT 2.83 X10e (3.90-5.60); RED CELL DISTRIBUTION WIDTH 16.9 % (11.0-15.5); WHITE BLOOD COUNT 14.6 X10e3 (4.0-10.5)
[2016-11-07 07:03] LABS: DIFF IND NO
[2016-11-07 07:44] LABS: %MB 3.2 % (0.0-4.0); MB 3.7 ng/ml
[2016-11-07 08:56] LABS: ALBUMIN SERUM 2.8 g/dL (3.5-5.0); BILIRUBIN, DIRECT 0.1 mg/dL (0.0-0.2); BILIRUBIN,TOTAL 0.8 mg/dL (0.2-2.0); BUN/CREATININE RATIO 2.17; CALCIUM SERUM 7.9 mg/dL (8.4-10.2); CREATININE SERUM 4.6 mg/dL (0.6-1.4); GLOM FILT RATE Estimated 14.2 mL/min (>60); MAGNESIUM 1.7 mg/dL (1.6-3.0); POTASSIUM 3.6 mmol/L (3.5-5.1); PROTEIN TOTAL SERUM 6.1 g/dL (6.0-8.3)
[2016-11-08 05:31] LABS: BASOPHIL# 0.1 X10e3 (0-0.3); BASOPHIL% 0.8 % (0-2.5); EOSINOPHIL# 4.2 X10e3 (0-0.7); EOSINOPHIL% 29.7 % (0.0-7.0); HEMATOCRIT 25.3 % (38.0-50.0); HEMOGLOBIN 8.3 gm/dL (13.0-16.0); LYMPHOCYTE# 1.5 X10e3 (1.0-3.5); LYMPHOCYTE% 10.3 % (17.0-45.0); MEAN CELL VOLUME 90.5 FL (83-96); MEAN CORPUSCULAR HEMOGLOBIN 29.6 PG (28-34); MEAN CORPUSCULAR HGB CONC 32.7 g/dL (30-36); MONOCYTE# 0.9 X10e3 (0-1.0); MONOCYTE% 6.3 % (3.0-12.0); NEUTROPHIL# 7.5 X10e3 (1.5-7.1); NEUTROPHIL% 52.9 % (40-75); PLATELET COUNT 258 X10e3 (140-420); RED CELL DISTRIBUTION WIDTH 16.8 % (11.0-15.5); WHITE BLOOD COUNT 14.1 X10e3 (4.0-10.5)
[2016-11-08 05:32] LABS: DIFF IND NO
[2016-11-08 06:15] LABS: BUN/CREATININE RATIO 2.64; CALCIUM SERUM 8.4 mg/dL (8.4-10.2); GLOM FILT RATE Estimated 8.9 mL/min (>60); POTASSIUM 3.8 mmol/L (3.5-5.1)
[2016-11-08 06:16] LABS: CREATININE SERUM 6.8 mg/dL (0.6-1.4)
[2016-11-09 07:21] LABS: HEMATOCRIT 26.2 % (38.0-50.0); HEMOGLOBIN 8.4 gm/dL (13.0-16.0); MEAN CELL VOLUME 90.7 FL (83-96); MEAN CORPUSCULAR HEMOGLOBIN 29.1 PG (28-34); MEAN PLATELET VOLUME 7.7 FL (6.5-11.5); RED BLOOD COUNT 2.89 X10e (3.90-5.60); RED CELL DISTRIBUTION WIDTH 17.1 % (11.0-15.5); WHITE BLOOD COUNT 15.5 X10e3 (4.0-10.5)
[2016-11-09 07:25] LABS: INR 1.1; PROTHROMBIN TIME (PATIENT) 11.2 SECONDS (9.6-11.5)
[2016-11-09 08:09] LABS: BUN/CREATININE RATIO 2.78; CALCIUM SERUM 8.3 mg/dL (8.4-10.2); CREATININE SERUM 9.7 mg/dL (0.6-1.4); GLOM FILT RATE Estimated 5.8 mL/min (>60); PHOSPHOROUS 3.6 mg/dL (2.5-4.6); POTASSIUM 4.1 mmol/L (3.5-5.1)
== END 2016-11-10 11:00 | DRG 208 ==
LOC: CED 16:55 → CEDOF 23:41 → CICCU3 23:41 → C3A PCU 11-07 15:13
PROVIDERS: Emergency Medicine; Internal Medicine; Internal Medicine Cardiovascular Disease; Internal Medicine Nephrology; Internal Medicine Sleep Medicine; Nurse Practitioner
PROC: 5A1945Z Respiratory Ventilation, 24-96 Consecutive Hours (ICD-10-PCS; principal; 2016-11-04)
PROC: 0BH17EZ Insertion of Endotracheal Airway into Trachea, Via Natural or Artificial Opening (ICD-10-PCS; 2016-11-04)
PROC: 02HV33Z Insertion of Infusion Device into Superior Vena Cava, Percutaneous Approach (ICD-10-PCS; 2016-11-04)
PROC: B548ZZA Ultrasonography of Superior Vena Cava, Guidance (ICD-10-PCS; 2016-11-04)
PROC: B30TZZZ Plain Radiography of Left Pulmonary Artery (ICD-10-PCS; 2016-11-04)
PROC: B30SZZZ Plain Radiography of Right Pulmonary Artery (ICD-10-PCS; 2016-11-04)
PROC: B24BZZZ Ultrasonography of Heart with Aorta (ICD-10-PCS; 2016-11-05)
PROC: 4A023N7 Measurement of Cardiac Sampling and Pressure, Left Heart, Percutaneous Approach (ICD-10-PCS; 2016-11-09)
PROC: B2151ZZ Fluoroscopy of Left Heart using Low Osmolar Contrast (ICD-10-PCS; 2016-11-09)
PROC: B2111ZZ Fluoroscopy of Multiple Coronary Arteries using Low Osmolar Contrast (ICD-10-PCS; 2016-11-09)
DX: J96.00 Acute respiratory failure, unspecified whether with hypoxia or hypercapnia (principal); I21.4 Non-ST elevation (NSTEMI) myocardial infarction; I46.9 Cardiac arrest, cause unspecified; J69.0 Pneumonitis due to inhalation of food and vomit; I95.9 Hypotension, unspecified; N18.6 End stage renal disease; J44.0 Chronic obstructive pulmonary disease with (acute) lower respiratory infection; I12.0 Hypertensive chronic kidney disease with stage 5 chronic kidney disease or end stage renal disease; E83.39 Other disorders of phosphorus metabolism; E66.01 Morbid (severe) obesity due to excess calories; I25.10 Atherosclerotic heart disease of native coronary artery without angina pectoris; E11.22 Type 2 diabetes mellitus with diabetic chronic kidney disease; Z99.2 Dependence on renal dialysis; Z79.4 Long term (current) use of insulin; Z89.412 Acquired absence of left great toe; E78.5 Hyperlipidemia, unspecified; Z68.26 Body mass index [BMI] 26.0-26.9, adult; E03.9 Hypothyroidism, unspecified; Z79.82 Long term (current) use of aspirin; I73.9 Peripheral vascular disease, unspecified; E87.6 Hypokalemia; R94.5 Abnormal results of liver function studies; Z88.0 Allergy status to penicillin; Z82.3 Family history of stroke; D64.9 Anemia, unspecified
CPT/HCPCS: 31500; 36556; 36600; 71010; 71275; 80048; 80053; 80061; 80076; 80202; 82248; 82308; 82550; 82553; 82803; 82947; 83735; 83880; 84100; 84443; 84484; 85025; 85027; 85610; 85730; 87040; 87340; 93005; 93306; 94002; 94640; 94760; 94761; 97162; 97165; 97530; 97535; 99291; 99292; C1760; C1769; C1894; C9113; G8978-GP; G8979-GP; G8987-GO; G8988-GO; J1644; J1815; J2250; J2405; J3010; J3370; J3490; Q9967